=== PATIENT | female | born 1985 | race Caucasian/White ===

== ENCOUNTER 2022-09-20 14:55 | Emergency (ER) | payer OTHER ==
[2022-09-20 15:18] LABS: BASOPHILS % (AUTO) 0.6 %; EOSINOPHILS # (AUTO) 0.1 10^3/uL (0.0-0.7); EOSINOPHILS % (AUTO) 1.8 %; HCT - HEMATOCRIT 41.3 % (37.0-47.0); HGB - HEMOGLOBIN 13.7 g/dL (12.0-16.0); LYMPHOCYTES # (AUTO) 2.9 10^3/uL (1.5-3.5); LYMPHOCYTES % (AUTO) 42.3 %; MEAN CORPUSCULAR HGB CONC 33.2 g/dL (32.0-36.0); MEAN CORPUSCULAR VOLUME 90.6 fL (81.0-99.0); MEAN PLATELET VOLUME 11.1 fL (7.9-10.8); MONOCYTES # (AUTO) 0.7 10^3/uL (0.0-1.0); MONOCYTES % (AUTO) 10.4 %; NEUTROPHILS % (AUTO) 44.8 %; PLT - PLATELET COUNT 265 10^3/uL (130-450); RED BLOOD COUNT 4.56 10^6/uL (4.20-5.40); RED CELL DISTRIBUTION WIDTH 12.5 % (12.0-15.0); WHITE BLOOD COUNT 6.7 x10^3/uL (4.8-10.8)
[2022-09-20 15:31] LABS: ALBUMIN 4.3 g/dL (3.2-5.5); ALBUMIN/GLOBULIN RATIO 1.4 (1.0-2.2); BILIRUBIN,TOTAL 0.4 mg/dL (0.2-1.0); CALCIUM 9.5 mg/dL (8.5-10.3); CREATININE 0.6 mg/dL (0.4-1.0); POTASSIUM 3.7 mmol/L (3.5-5.0); TOTAL PROTEIN 7.3 g/dL (6.7-8.2)
--- NOTE | 2022-09-20 15:38 | ED Physician Documentation ---
PD HPI FEMALE - Stated complaint Stated Complaint: F - Chief complaint Chief Complaint: Abd Pain - History obtained from History obtained from: Patient - History of Present Illness Timing - onset: How many days ago (4-5 days of regular menses type bleeding and now 2 days of heavy brighter bleeding and passing of clots with significant cramps. Feeling lightheaded today. States one large clot was about size of her fist.) Timing - duration: Days Timing - details: Gradual onset, Still present Associated symptoms: Abdominal pain, Vaginal bleeding. No: Fever, Back pain, Vaginal discharge, Genital sore/lesion, Dysuria Contributing factors: No: , control Review of Systems Constitutional: denies: Fever, Chills Nose: denies: Rhinorrhea / runny nose, Congestion Throat: denies: Sore throat Cardiac: denies: Chest pain / pressure Respiratory: denies: Dyspnea, Cough GI: reports: Abdominal Pain, Nausea. denies: Vomiting, Diarrhea : reports: Vaginal bleeding, Irregular menses. 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 - Present Medications Home Medications: Ambulatory Orders Medication Instructions Recorded Confirmed Albuterol [Ventolin Hfa] 1 puffs INH Q4HR PRN 12/28/14 09/20/22 Fexofenadine [Evelyn] 60 mg PO DAILY 09/20/22 09/20/22 HYDROcod/ACETAM 5/325 [[place] 5/325] 1 ea PO Q6H PRN #10 tablet 09/20/22 Norethindrone-Ethinyl Estrad 1 each PO DAILY 32 Days #2 kit 09/20/22 [Ortho-Novum 7-7-7-28 Tablet] Ondansetron Odt [Zofran] 4 mg TL Q6H PRN #10 tablet 09/20/22 Sertraline [Zoloft] 100 mg PO DAILY 09/20/22 09/20/22 - Allergies Allergies/Adverse Reactions: Allergies Allergy/AdvReac Type Severity Reaction Status Date / Time cefazolin Allergy Hives Verified 12/28/14 15:10 clindamycin Allergy Hives Verified 12/28/14 15:10 sulfamethoxazole Allergy Hives Verified 09/20/22 15:03 [From ] trimethoprim [From ] Allergy Hives Verified 09/20/22 15:03 - Social History Does the pt smoke?: No Smoking Status: Never smoker Does the pt drink ETOH?: No Does the pt have substance abuse?: No PD ED PE NORMAL - Vitals Vital signs reviewed: Yes - General General: Alert and oriented X 3, Well developed/nourished, Other (appears uncomfortable with the cramps. Holding lower abd. ) - Neck Neck: Supple, no meningeal sign, No adenopathy - Cardiac Cardiac: RRR, No murmur - Respiratory Respiratory: Clear bilaterally - Abdomen Abdomen: Normal bowel sounds, Soft, Non distended, No organomegaly, Other (tender lower abd suprapubic area both left and right, mostly center. No percussion tenderness. Minimal local rebound. ) - Female Female : Deferred Results - Vitals Vitals: Vital Signs - 24 hr 09/20/22 09/20/22 14:58 17:02 Temperature 37.4 C Heart Rate 76 81 Respiratory 16 16 Rate Blood Pressure 122/82 H 128/87 H O2 Saturation 100 96 Oxygen O2 Source Room air - Labs Labs: Laboratory Tests 09/20/22 09/20/22 09/20/22 15:14 15:14 15:14 WBC 6.7 RBC 4.56 Hgb 13.7 Hct 41.3 MCV 90.6 MCH 30.0 MCHC 33.2 RDW 12.5 Plt Count 265 MPV 11.1 H Neut # (Auto) 3.0 Lymph # (Auto) 2.9 [place] # (Auto) 0.7 Eos # (Auto) 0.1 Baso # (Auto) 0.0 Absolute Nucleated RBC 0.00 Nucleated RBC % 0.0 Sodium 140 Potassium 3.7 Chloride 105 Carbon Dioxide 26 Anion Gap 9.0 BUN 6 Creatinine 0.6 Estimated GFR (MDRD) 114 Glucose 103 H Calcium 9.5 Total Bilirubin 0.4 AST 17 ALT 18 Alkaline Phosphatase 70 Total Protein 7.3 Albumin 4.3 Globulin 3.0 Albumin/Globulin Ratio 1.4 Lipase 104 H Urine HCG, Qual Blood Type O POSITIVE Blood Type Recheck 09/20/22 09/20/22 16:02 16:25 WBC RBC Hgb Hct MCV MCH MCHC RDW Plt Count MPV Neut # (Auto) Lymph # (Auto) [place] # (Auto) Eos # (Auto) Baso # (Auto) Absolute Nucleated RBC Nucleated RBC % Sodium Potassium Chloride Carbon Dioxide Anion Gap BUN Creatinine Estimated GFR (MDRD) Glucose Calcium Total Bilirubin AST ALT Alkaline Phosphatase Total Protein Albumin Globulin Albumin/Globulin Ratio Lipase Urine HCG, Qual NEGATIVE Blood Type Blood Type Recheck O POSITIVE - Rads (name of study) pelvic U/S Relevant Findings:: Prelim report reviewed, EMP independent interpretation of test, See rad report, Other (US tech gave report: thickened endometrium. Normal ovaries with some dominant follicles. No free fluid in pelvis. ) PD Medical Decision Making - ED course Complexity details: reviewed results (Given IV Toradol and PO tylenol. She is driving home. U/S showed no acute abnormalities.), considered differential (has had irregular menses the past few months. Had menses type bleeding initially few days ago and now brighter and passing clots. Will check HCG, which is negative. Check CBC to eval for blood loss, and Hemoglobin is normal. ), d/w patient Drug Therapy Requiring Monitoring for Toxicity: IV toradol here with reasonable improvement. 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 She felt better. Can treat with estrogen hormones to see if stops the period appropriately. Departure - Departure Disposition: Home, Self Care Clinical Impression: Lower abdominal pain, Dysfunctional uterine bleeding Condition: Stable Record reviewed to determine appropriate education?: Yes Instructions: ED Bleed Irregular Vaginal Follow-Up: PATRICK RUTHERFORD PA-C [Primary Care Provider] - [facility] [Provider Group] Prescriptions: HYDROcod/ACETAM 5/325 [[place] 5/325] 1 ea PO Q6H PRN #10 tablet PRN Reason: Pain Norethindrone-Ethinyl Estrad [Ortho-Novum 7-7-7-28 Tablet] 1 each PO DAILY 32 Days #2 kit Ondansetron Odt [Zofran] 4 mg TL Q6H PRN #10 tablet PRN Reason: Nausea / Vomiting Comments: Your ultrasound does not show any significant abnormality. There is some thickening of the endometrial lining consistent with the heavy period. No ovarian cysts. No free fluid to suggest internal bleeding. We can treat your bleeding and symptoms with a hormonal approach. I prescribed to packets of control tablets. Take 3 tablets daily from the first packet, 3 daily until the bleeding is much slowed or stopped and then 2 tablets the next day. This typically will be 3 to 4-day duration. Then start the next oral contraceptive packet once daily for the 28-day as usual. You can then discontinue the oral contraceptives if you are intending to not be on them still. Otherwise see your primary care for further prescriptions. Use some anti-inflammatories such as ibuprofen 400 to 600 mg 2 or 3 times daily with food for the next several days to a week. Stay well-hydrated. Tylenol every 4-6 hours if needed for pain or hydrocodone if needed for worse pain. Ondansetron if needed for nausea. Discharge Date/Time: 09/20/22 18:11
[2022-09-20] MEDS ORDERED: ACETAMINOPHEN 325 MG TABLET PO STA ×2 (15:55→17:51)
[2022-09-20] MEDS ORDERED: KETOROLAC 15 MG/ML VIAL IVP STA (15:55)
[2022-09-20] MEDS ORDERED: SODIUM CHLORIDE 0.9% 1,000 ML IV STA (15:55)
[2022-09-20 16:33] LABS: HCG UR QUAL NEGATIVE
[2022-09-20 17:42] VITALS: BP 128/87
--- NOTE | 2022-09-20 17:42 | Ultrasound Report ---
PROCEDURE: Pelvic w/Transvag+Doppler Comp INDICATIONS: pelvic pain, R; heavy vag bleeding TECHNIQUE: Real-time scanning was performed of the pelvic organs, with image documentation. Additional endovagi nal scanning was necessary due to incomplete visualization of the adnexal and endometrial structures by transabdominal scanning. Doppler interrogation was performed of the ovaries bilaterally. COMPARISON: None. FINDINGS: No pathologic free abdominal or pelvic fluid. Uterus: Uterus is normal in size at 9.3 x 4 0.0, 5.6 cm. The echo pattern is heterogeneous. The end ometrium measures 5 mm in combined thickness. There is vascularity present in the endometrium. Patie nt is actively bleeding. Ovaries: Right ovary measures 2.5 x 1.3 x 2.6 cm. Left ovary measures 2.1 x 1.6 x 2.0 cm. There are less than 12 follicles in each ovary. Normal appearing arterial and venous waveforms are confirmed to each ovary.] Other: No free pelvic fluid. IMPRESSION: 1. No evidence of torsion. 2. There is vascularity noted in the endometrium. Patient is actively bleeding. This is consistent wi th active menstruation. Reviewed by: Alli Romero MD on 09/20/2022 5:41 PM PST Approved by: Alli Romero MD on 09/20/2022 5:41 PM PST Station ID: [id number]
[2022-09-20] MEDS ORDERED: DICYCLOMINE 10 MG CAPSULE PO STA (17:52)
== END 2022-09-20 18:11 | disposition home or self-care (01) ==
LOC: ED 14:55
DX: N93.8 Other specified abnormal uterine and vaginal bleeding (principal); R10.30 Lower abdominal pain, unspecified; Z79.3 Long term (current) use of hormonal contraceptives; Z79.899 Other long term (current) drug therapy
CPT/HCPCS: 36415; 76830; 76856; 80053; 81025; 83690; 85025; 86900; 86901; 93975; 96374; 99283; 99284; A9270

== ENCOUNTER 2022-12-04 11:20 | Outpatient (CLI) | payer OTHER | END 2022-12-04 11:21 | disposition home or self-care (01) | LOC: LAB 11:20 | PROVIDERS: ATTEND Obstetrics & Gynecology | DX: N92.1 Excessive and frequent menstruation with irregular cycle (principal) | CPT/HCPCS: 36415; 84144; 84443 ==

== ENCOUNTER 2023-09-29 15:30 | Outpatient (CLI) | payer OTHER ==
--- NOTE | 2023-09-29 18:02 | XRAY Report ---
PROCEDURE: Cervical Spine 2-3V INDICATIONS: CERVICAL STRAIN, WITH RADICULOPATHY TECHNIQUE: 3 view(s) of the cervical spine were acquired. COMPARISON: None. FINDINGS: Bones: No fractures or dislocations to the T1 level. Straightening of normal cervical lordosis is s een. The lateral masses of C1 appear intact on the odontoid view. No suspicious bony lesions. Soft tissues: No prevertebral soft tissue swelling. IMPRESSION: No displaced fracture or traumatic subluxation. Reviewed by: Kwesi Garner MD on 09/29/2023 6:01 PM PDT Approved by: Kwesi Garner MD on 09/29/2023 6:01 PM PDT Station ID: [id number]
== END 2023-09-29 15:45 | disposition home or self-care (01) ==
LOC: DI.N 15:30
PROVIDERS: ATTEND Physician Assistant Medical
DX: M54.12 Radiculopathy, cervical region (principal)